=== PATIENT | female | born 1980 | race African-American/Black ===

== ENCOUNTER 2018-03-11 09:44 | Inpatient (IN) | payer MEDICAID ==
[~2018-03-11] VITALS: Ht 165.1 cm; Wt 110.2 kg
[2018-03-11] MEDS ORDERED: PNV1TABL50 PO (11:27)
[2018-03-11] MEDS ORDERED: BUTORPHANOL TARTRATE 2 MG/ML VIAL IV PRN (14:30)
[2018-03-11] MEDS ORDERED: LIDOCAINE HCL 1% 20ML VIAL (Pyxis) INJ INFIL SCH (14:30)
[2018-03-11] MEDS: LACTATED RINGERS 1,000 ML IV SCH (15:29)
[2018-03-11 16:38] LABS: BASOPHILS % 0.3 % (0.0-2.0); EOSINOPHILS % 0.5 % (0.0-5.0); HEMATOCRIT. 36.7 % (36.0-48.0); HEMOGLOBIN. 12.4 g/dL (12.0-16.0); LYMPHOCYTES % 19.5 % (20.0-50.0); MEAN CORPUSCULAR HEMOGLOBIN 30.6 pg (28.0-32.0); MEAN CORPUSCULAR VOLUME 90.9 fL (81.0-99.0); MEAN PLATELET VOLUME 11.2 fl (7.4-10.4); MONOCYTES % 7.8 % (2.0-8.0); NEUTROPHILS % 71.9 % (40.0-76.0); PLATELET 164 x1000/uL (130-400); RED BLOOD CELL COUNT 4.04 mill/uL (4.2-5.4); RED CELL DISTRIBUTION WIDTH 13.5 % (11.6-14.6)
[2018-03-11 16:45] LABS: PROTHROMBIN TIME 9.6 sec (9.1-11.1)
[2018-03-11 17:01] LABS: CLARITY URINE CLOUDY (CLEAR); COLOR URINE YELLOW (YELLOW); KETONES URINE TRACE (NEGATIVE); LEUKOCYTE ESTERASE URINE TRACE (NEGATIVE); NITRITE URINE NEGATIVE (NEGATIVE); OCCULT BLOOD URINE NEGATIVE (NEGATIVE); PH URINE 6.5 (4.5-8.0); PROTEIN URINE NEGATIVE (NEGATIVE); SPECIFIC GRAVITY URINE 1.019 (1.005-1.030)
[2018-03-11 17:25] LABS: *BARBITURATES SCREEN URINE NEGATIVE (NEGATIVE); *BENZODIAZEPINES SCREEN URINE NEGATIVE (NEGATIVE); *COCAINE SCREEN URINE NEGATIVE (NEGATIVE)
[2018-03-11 17:26] LABS: *AMPHETAMINES SCREEN URINE NEGATIVE (NEGATIVE); METHADONE URINE SCREEN NEGATIVE (NEGATIVE); OPIATES URINE SCREEN NEGATIVE (NEGATIVE); PHENCYCLIDINE URINE SCREEN NEGATIVE (NEGATIVE)
[2018-03-11 17:31] LABS: CANNABINOID URINE SCREEN PRESUMTIVE POSITIVE (NEGATIVE)
[2018-03-11 17:31] LABS: HEPATITIS B SURFACE ANTIGEN NEGATIVE
[2018-03-12] MEDS: LACTATED RINGERS 1,000 ML IV SCH ×2 (11:20→21:09)
[2018-03-13] MEDS: LACTATED RINGERS 1,000 ML IV SCH (06:21)
[2018-03-13] MEDS ORDERED: ACETAMINOPHEN 500MG TABLET PO SCH (06:30)
[2018-03-13] MEDS ORDERED: BETAMETHASONE ACET/BETAMET 30 MG/5 ML VIAL IM ONE (10:15)
[2018-03-13 12:49] LABS: BASOPHILS % 0.2 % (0.0-2.0); EOSINOPHILS % 0.9 % (0.0-5.0); HEMATOCRIT. 34.4 % (36.0-48.0); HEMOGLOBIN. 11.8 g/dL (12.0-16.0); LYMPHOCYTES % 20.2 % (20.0-50.0); MEAN CORPUSCULAR VOLUME 90.7 fL (81.0-99.0); MEAN PLATELET VOLUME 10.6 fl (7.4-10.4); MONOCYTES % 9.2 % (2.0-8.0); NEUTROPHILS % 69.5 % (40.0-76.0); PLATELET 136 x1000/uL (130-400); RED CELL DISTRIBUTION WIDTH 13.3 % (11.6-14.6)
[2018-03-14] MEDS: LACTATED RINGERS 1,000 ML IV SCH ×3 (02:07→21:12)
[2018-03-14] MEDS ORDERED: DEXT 5%/LR + PITOCIN 20UNITS/L 1,000 ML IV ONE (08:30)
[2018-03-14] MEDS ORDERED: PENICILLIN G POTASSIUM 5 MMU in DEXT 5% WATER 100 ML IV ONE (16:00)
[2018-03-14] MEDS ORDERED: PENICILLIN G POTASSIUM 2.5 MMU in DEXTROSE 5% WATER 50 ML IV SCH (20:00)
[2018-03-15] MEDS ORDERED: DEXT 5%/LR + PITOCIN 20UNITS/L 1,000 ML IV SCH ×2 (01:24→04:32)
[2018-03-15] MEDS ORDERED: METHYLERGONOVINE MALEATE 0.2 MG/ML IM PRN ×2 (01:30→04:45)
[2018-03-15] MEDS ORDERED: NALOXONE HCL 0.4 MG/ML 1ML VIAL IM PRN (01:30)
[2018-03-15] MEDS ORDERED: LIDOCAINE HCL 1% 20ML VIAL (Pyxis) INJ INFIL SCH (01:30)
[2018-03-15] MEDS ORDERED: MISOPROSTOL 100MCG TABLET VG SCH (01:30)
[2018-03-15] MEDS ORDERED: CARBOPROST TROMETHAMINE 250 MCG/ML AMPUL IM PRN (01:30)
[2018-03-15] MEDS: BUTORPHANOL TARTRATE 2 MG/ML VIAL IV PRN ×2 (01:38→03:29)
[2018-03-15 04:30] VITALS: BP 114/58
[2018-03-15] MEDS ORDERED: IBUPROFEN 400MG TABLET PO PRN (04:45)
[2018-03-15] MEDS ORDERED: RHO(D) IMMUNE GLOBULIN 300 MCG/SYR IM PRN (04:45)
[2018-03-15] MEDS ORDERED: LANOLIN OINT 0.25 GM TUBE TOP PRN (04:45)
[2018-03-15 05:00] VITALS: BP 119/66
[2018-03-15 05:30] VITALS: BP 119/62
[2018-03-15 07:31] VITALS: BP 110/58
[2018-03-15] MEDS: PRENATAL VIT/FE FUMARATE/FA TABLET PO SCH (09:18)
[2018-03-15 15:31] VITALS: BP 112/56
[2018-03-15 16:34] LABS: HEPATITIS B SURFACE ANTIGEN NEGATIVE
[2018-03-15] MEDS: IBUPROFEN 800MG TABLET PO PRN (17:43)
[2018-03-15 22:00] VITALS: BP 100/55
[2018-03-16] MEDS: IBUPROFEN 800MG TABLET PO PRN ×2 (03:46→09:33)
[2018-03-16 06:00] VITALS: BP 112/56
[2018-03-16 06:57] LABS: BASOPHILS % 0.3 % (0.0-2.0); EOSINOPHILS % 1.2 % (0.0-5.0); HEMATOCRIT. 30.5 % (36.0-48.0); HEMOGLOBIN. 10.6 g/dL (12.0-16.0); LYMPHOCYTES % 24.6 % (20.0-50.0); MEAN CORPUSCULAR HEMOGLOBIN 31.6 pg (28.0-32.0); MEAN CORPUSCULAR VOLUME 90.6 fL (81.0-99.0); MEAN PLATELET VOLUME 10.7 fl (7.4-10.4); MONOCYTES % 8.4 % (2.0-8.0); NEUTROPHILS % 65.5 % (40.0-76.0); PLATELET 130 x1000/uL (130-400); RED BLOOD CELL COUNT 3.37 mill/uL (4.2-5.4); RED CELL DISTRIBUTION WIDTH 13.4 % (11.6-14.6)
[2018-03-16 07:29] VITALS: BP 105/50
[2018-03-16] MEDS: PRENATAL VIT/FE FUMARATE/FA TABLET PO SCH (09:33)
[2018-03-16 16:14] VITALS: BP 107/54
[2018-03-16 20:00] VITALS: BP 117/48
[2018-03-17] VITALS: BP 98/52
[2018-03-17 04:00] VITALS: BP 101/48
[2018-03-17 08:54] VITALS: BP 106/53
[2018-03-17 13:11] LABS: CANNABINOID CONFIRMATION URINE Positive (.)
== END 2018-03-17 12:20 | disposition home or self-care (01) | DRG 560 ==
LOC: 8 EST LDRP 09:44 → OBSVTOIN 09:44 → 8 EST LDRP 14:08 → 8EST 03-15 06:15
PROVIDERS: ADMIT Obstetrics & Gynecology; ATTEND Obstetrics & Gynecology
PROC: 30233S1 Transfusion of Nonautologous Globulin into Peripheral Vein, Percutaneous Approach (ICD-10-PCS; 2018-03-11)
PROC: 10E0XZZ Delivery of Products of Conception, External Approach (ICD-10-PCS; principal; 2018-03-15)
DX: O41.03X0 Oligohydramnios, third trimester, not applicable or unspecified (principal); O99.324 Drug use complicating childbirth; F12.10 Cannabis abuse, uncomplicated; O90.81 Anemia of the puerperium; D64.9 Anemia, unspecified; Z3A.38 38 weeks gestation of pregnancy; Z37.0 Single live birth
CPT/HCPCS: 36415; 76805; 76815; 76818; 80305; 80349; 86592; 86703; 86762; 86850; 86870; 86886; 86900; 87340; 90384; 99281; G0378; J0595; J0702; J2540; J2590; J7060; J7120

== ENCOUNTER 2021-02-14 07:56 | Emergency (ER) | payer MEDICAID ==
[~2021-02-14] VITALS: Ht 162.6 cm; Wt 112.0 kg
[~2021-02-14 07:56] MED LIST: PNV1TABL50 PO
[2021-02-14] MEDS ORDERED: IBUPROFEN 600MG TABLET PO ONE (08:45)
[2021-02-14 08:58] VITALS: BP 143/95
== END 2021-02-14 09:35 | disposition home or self-care (01) ==
LOC: ER 07:56
DX: B34.8 Other viral infections of unspecified site (principal); Z20.822 Contact with and (suspected) exposure to COVID-19
CPT/HCPCS: 99283; C9803; U0003; U0005

== ENCOUNTER 2021-07-17 05:24 | Emergency (ER) | payer MEDICAID, OTHER ==
[~2021-07-17] VITALS: Ht 165.1 cm; Wt 91.0 kg
[2021-07-17] MEDS ORDERED: DEXAMETHASONE 4MG TABLET PO ONE (06:00)
[2021-07-17] MEDS ORDERED: KETOROLAC 60MG/2ML VIAL IM ONE (06:00)
[2021-07-17] MEDS ORDERED: ACETAMINOPHEN 325MG TABLET PO ONE (06:00)
[2021-07-17] MEDS ORDERED: ACETAMINOPHEN 160 MG/5 ML UD CUP PO ONE (06:30)
[2021-07-17] MEDS ORDERED: ACETAMINOPHEN 650MG/20.3ML UDC PO NR (06:30)
[2021-07-17 07:30] VITALS: BP 125/71
[2021-07-17] MEDS ORDERED: TOPUD PO (07:40)
[2021-07-17] MEDS ORDERED: IBUP-2028 MT (07:40)
[2021-07-17] MEDS ORDERED: LIDO1ADH23 TP (07:41)
== END 2021-07-17 07:59 | disposition home or self-care (01) ==
LOC: ER 05:24
DX: B34.9 Viral infection, unspecified (principal); J02.9 Acute pharyngitis, unspecified; J02.0 Streptococcal pharyngitis; Z20.822 Contact with and (suspected) exposure to COVID-19
CPT/HCPCS: 87426; 87430; 87804; 96372; 99284; C9803; J1885; J8540